=== PATIENT | male | born 1950 | race Caucasian/White ===

== ENCOUNTER → 2016-10-13 | Outpatient (CLI) | payer OTHER | LOC: FIMAGING 17:34 | PROVIDERS: ATTEND Nurse Practitioner Adult Health | DX: M50.30 Other cervical disc degeneration, unspecified cervical region (principal); M47.892 Other spondylosis, cervical region; M51.84 Other intervertebral disc disorders, thoracic region ==

== ENCOUNTER → 2016-10-29 | Outpatient (CLI) | payer OTHER | LOC: BMCIMAGING 09:02 | PROVIDERS: ATTEND Orthopaedic Surgery | DX: M25.861 Other specified joint disorders, right knee (principal) ==

== ENCOUNTER → 2018-01-21 | Outpatient (CLI) | payer OTHER ==
[~2018-01-21] MED LIST: IOPAMIDOL (ISOVUE-300) 100 ML BTL ONE
== END ==
LOC: FIMAGING 08:38
PROVIDERS: ATTEND Internal Medicine Gastroenterology
DX: K38.9 Disease of appendix, unspecified (principal); N20.2 Calculus of kidney with calculus of ureter
CPT/HCPCS: 82565-PO; Q9967

== ENCOUNTER 2018-04-19 14:47 | Day surgery (SDC) | payer OTHER ==
[2018-04-19] MEDS ORDERED: LR 1,000 ML IV ONE (15:01)
[2018-04-19] MEDS ORDERED: MIDAZOLAM 2 MG/2 ML VIAL IVP ONE (16:06)
--- NOTE | 2018-04-19 16:07 | PDANEPAE ---
ANE Past Medical History - Cardiovascular History Hx Hypertension: Yes Hx Arrhythmias: Yes Hx Chest Pain: No Hx Coronary Artery / Peripheral Vascular Disease: No Hx CHF / Valvular Disease: No Hx Palpitations: No Cardiovascular History Comment: pcp monitors bp medications. heart murmur. hx of psvt- no monitoring currently - Pulmonary History Hx COPD: No Hx Asthma/Reactive Airway Disease: No Hx Recent Upper Respiratory Infection: No Hx Oxygen in Use at Home: No Hx Sleep Apnea: No Sleep Apnea Screening Result - Last Documented: Positive Pulmonary History Comment: willian triggers - Neurologic History Hx Cerebrovascular Accident: No Hx Seizures: No Hx Dementia: No - Endocrine History Hx Diabetes: No Obesity: no - Renal History Hx Renal Disorders: Yes Renal History Comment: kidney stones. stent placed with fronczak 04/08/18 - Liver History Hx Hepatic Disorders: No - Neurological & Psychiatric Hx Hx Neurological and Psychiatric Disorders: No - Cancer History Hx Cancer: No - Congenital Disorder History Hx Congenital Disorders: No - GI History GERD: no Hx Gastrointestinal Disorders: Yes Gastrointestinal History Comment: recent colonoscopy - Other Health History Other Health History: wears glasses for driving - Chronic Pain History Chronic Pain: No - Surgical History Prior Surgeries: stent placed 04/08/18 at [facility]. appy at [facility]. colonoscopy. cartiledge scraping of left knee 20 yrs ago ANE Review of Systems Review of Systems: - Exercise capacity METS (RN): 4 METS ANE Patient History - Allergies Allergies/Adverse Reactions: No Known Allergies Allergy (Verified 04/16/18 16:19) - Home Medications Home medications: home medication list seen and reviewed Home Medications: Herbals/Supplements -Info Only 04/16/18 [Last Taken 04/16/18] Hydrochlorothiazide 04/16/18 [Last Taken 1 Day Ago ~04/18/18] Metoprolol Tartrate 04/16/18 [Last Taken 04/19/18 06:00] Oxybutynin 04/16/18 [Last Taken 04/16/18] Tamsulosin HCl 04/16/18 [Last Taken 1 Day Ago ~04/18/18] Tylenol 04/16/18 [Last Taken 3 Days Ago ~04/16/18] - NPO status NPO Status: no food or drink >8 hours NPO Since - Liquids (Date): 04/19/18 NPO Since - Liquids (Time): 12:45 NPO Since - Solids (Date): 04/19/18 NPO Since - Solids (Time): 05:00 - Anes Hx Anes Hx: no prior problems - Smoking Hx Smoking Status: Former smoker - Family Anes Hx Family Hx Anesthesia Complications: none ANE Labs/Vital Signs - Labs Result Diagrams: 04/19/18 Unknown - Vital Signs Blood Pressure: 167/87 Heart Rate: 70 Respiratory Rate: 16 O2 Sat (%): 97 Height: 165.1 cm Weight: 69.853 kg ANE Physical Exam - Airway Neck exam: FROM Mallampati Score: Class 1 Mouth exam: normal dental/mouth exam - Pulmonary Pulmonary: no respiratory distress, no rales or rhonchi, clear to auscultation - Cardiovascular Cardiovascular: regular rate and rhythym, no murmur, rub, or gallop - ASA Status ASA Status: II ANE Anesthesia Plan Anesthesia Plan: GA w LMA
[2018-04-19] MEDS ORDERED: IOPAMIDOL (ISOVUE-M 300) 15 ML VIAL ONE (16:11)
[2018-04-19] MEDS ORDERED: ceFAZolin 2 GM in D5W 100 ML IV ONE (17:08)
--- NOTE | 2018-04-19 17:08 | PDHPUP ---
History & Physical Update H&P update statement: This history and physical update is based on an assessment of the patient which was completed after admission or registration (within 24 hours), but prior to the surgery/procedure. H&P update: H&P reviewed & patient examined, no change in patient's condition since H&P completed
[2018-04-19] MEDS ORDERED: CEFAZOLIN 2 GM/DEXTROSE/100 ML BAG IV ONE (17:09)
[2018-04-19] MEDS ORDERED: PROPOFOL 200 MG/20 ML VIAL ONE (17:20)
[2018-04-19] MEDS ORDERED: fentaNYL 100 MCG/2 ML INJ ONE ×2 (17:20→18:11)
[2018-04-19] MEDS ORDERED: ONDANSETRON 4 MG/2 ML VIAL ONE (17:30)
[2018-04-19] MEDS ORDERED: DEXAMETHASONE 4 MG/ML VIAL ONE ×2 (17:30)
[2018-04-19] MEDS ORDERED: ceFAZolin 2 GM/DEXTROSE 100 ML IV ONE (17:30)
[2018-04-19] MEDS ORDERED: ONDANSETRON 4 MG/2 ML VIAL IVP PRN (17:45)
[2018-04-19] MEDS ORDERED: ACETAMINOPHEN 500 MG TAB PO PRN (17:45)
[2018-04-19] MEDS ORDERED: oxyCODONE IR 5 MG TAB PO PRN (17:45)
[2018-04-19] MEDS ORDERED: HYDROCODONE/APAP 5/325 TAB PO PRN (17:45)
[2018-04-19] MEDS ORDERED: NALOXONE HCL 0.4 MG/ML INJ IVP PRN (17:45)
[2018-04-19] MEDS ORDERED: PROMETHAZINE HCL 25 MG/ML INJ IVP PRN (17:45)
[2018-04-19] MEDS ORDERED: fentaNYL 100 MCG/2 ML INJ IVP PRN (17:45)
[2018-04-19] MEDS ORDERED: LR 500 ML IV PRN (17:45)
[2018-04-19] MEDS: LIDOCAINE 2% JELLY 20 ML (UROJECT) ONE ×3 (17:59→19:05)
[2018-04-19] MEDS ORDERED: KETOROLAC 30 MG/1 ML SDV ONE (18:56)
--- NOTE | 2018-04-19 19:22 | POSTOPPROG ---
Post Op Note Date of Operation: 04/19/18 Surgeon: Marily Joyner Anesthesiologist: [place] Anesthesia: LMA Pre-op Diagnosis: right renal stones, ureteral stricture Post-op Diagnosis: same Indication: right renal stones, ureteral stricture Procedure: cysto,RURS,laser,stent,basket ext frag, RGP, fluoro Findings: right stones lasered, dusted, extracted Inf/Abcess present in the surg proc area at time of surgery?: No EBL: Minimal Complications: none, patient tolerated procedure well Drains: Other (ch) Specimen(s): stone frag
[2018-04-19] MEDS ORDERED: OPIUM/BELLADONNA ALKALO SUPP PR ONE (19:30)
[2018-04-19] MEDS ORDERED: oxyCODONE IR 5 MG TAB ONE (19:47)
[2018-04-19 20:25] VITALS: BP 127/73
--- NOTE | 2018-04-20 13:56 | GOP ---
DATE OF OPERATION: 04/19/2018 SURGEON: Marily Joyner MD ANESTHESIA: General anesthesia. ANESTHESIOLOGIST: Dr. Saxena. PREOPERATIVE DIAGNOSIS: Right renal stones and right ureteral stricture. POSTOPERATIVE DIAGNOSIS: Right renal stones and right ureteral stricture. PROCEDURE PERFORMED: Cystoscopy, right ureteroscopy, laser lithotripsy, stent basket extraction of s tones, retrograde pyelogram. FINDINGS: SPECIMENS: Stone fragments. ESTIMATED BLOOD LOSS: Minimal. INDICATIONS: The patient presented a week and a half ago for treatment of his right renal stones, bu t due to a very tight ureteral stricture and inability to gain access to the stones, a stent was just placed, and he returns today for treatment of the stones. The rationale, risks, and benefits, inclu ding bleeding, infection, pain, injury to the urethra, bladder or ureter, inability to gain access to the stones, need for subsequent procedures, possible need for a percutaneous nephrostomy tube placed by Interventional Radiology, and need for a short-term Gordillo catheter, were all discussed with the p atient, and he agreed to proceed. DESCRIPTION OF PROCEDURE: The patient was taken back to the cystoscopy suite and placed on the cysto scopy table in the supine position. General anesthesia induced without complication. Time-out perfo rmed and core measures satisfied, including placement of a Tony Hugger, SCDs, and administration of 2 g Ancef antibiotics. He was brought to the cysto table and placed in the dorsal lithotomy position. All pressure points padded. Genitalia draped and prepped in a standard surgical fashion with Betad ine. A rigid cystoscope easily cannulated the urethral meatus. However, his kind of urethral meatus was very tight and narrow and did accommodate the scope, but I did reduce the Rabun dilation of the meatus. However, it did accommodate the scope without trauma and advanced atraumatically into th e bladder. The right ureteral stent was grasped with a grasper, the distal end externalized, and a 0 .035 Glidewire advanced with fluoroscopic guidance in the right collecting system. The stent was rem rena, leaving the wire in place. A second wire was placed with fluoroscopic and cystoscopic guidance . Then, 1 wire was secured to the drape as a safety wire and the second wire was a looking wire. I advanced a 12/14-Syrian ureteral access sheath without difficulty or resistance with fluoroscopic nelly lawson up into the right collecting system. Thus, I was able to get past the previous ureteral strict ure. Then, I advanced a flexible ureteroscope into the kidney. I did locate all of the stones, and they were in the upper, the mid, and the lower pole. These were very hard stones, but I was able to laser them into dust and basket the fragments. I did basket out several fragments and sent these to Pathology. The remaining was just dust and would pass on its own. At the end of the procedure, I fe lt everything that was remaining would pass without difficulty. He was, I do want to note, very tigh t at the ureteropelvic junction. This area likely was another stricture, but I was able to pass the sheath past it and complete the case. At the end of the procedure, I had my safety wire still up. I removed the scope and the access sheath together and examined the wall of the ureter and the ureter, except for the ureteropelvic junction area, which was edematous. It looked healthy. The safety wir e was still up. I back-loaded it in the cystoscope and then placed a 6-Syrian multivariable stent wi th fluoroscopic guidance without difficulty, with curls in the renal pelvis and also nice curl in the bladder. I looked in the bladder and removed any small clot and any stone fragments that made their way down and then placed lidocaine jelly and an 18-Syrian Gordillo catheter without difficulty, with re turn of reddish urine. At this point, I considered the procedure complete. He was awoken from anest hesia and transferred to the PACU in good condition. COMPLICATIONS: None. The patient tolerated the procedure well. TUBES: Gordillo catheter. /[id number]/MODL
== END 2018-04-19 20:26 | disposition home or self-care (01) ==
LOC: FSGY 14:47
PROVIDERS: ATTEND Urology
PROC: 0T768DZ Dilation of Right Ureter with Intraluminal Device, Via Natural or Artificial Opening Endoscopic (ICD-10-PCS; principal; 2018-04-19 16:15)
PROC: 0TF38ZZ Fragmentation in Right Kidney Pelvis, Via Natural or Artificial Opening Endoscopic (ICD-10-PCS; principal; 2018-04-19 16:15)
PROC: 0TC38ZZ Extirpation of Matter from Right Kidney Pelvis, Via Natural or Artificial Opening Endoscopic (ICD-10-PCS; principal; 2018-04-19 16:15)
PROC: BT1DYZZ Fluoroscopy of Right Kidney, Ureter and Bladder using Other Contrast (ICD-10-PCS; principal; 2018-04-19 16:15)
DX: N20.0 Calculus of kidney (principal); N13.5 Crossing vessel and stricture of ureter without hydronephrosis; I10 Essential (primary) hypertension; Z87.891 Personal history of nicotine dependence
CPT/HCPCS: 52356; 76001; C1758; C1769; C1894; 82365-90; C2625; J0690; J1100; J1885; J2250; J2405; J2704; J3010; Q9967

== ENCOUNTER → 2018-06-10 | Outpatient (CLI) | payer OTHER | LOC: BMCIMAGING 13:31 | PROVIDERS: ATTEND Urology | DX: N28.1 Cyst of kidney, acquired (principal); R93.89 Abnormal findings on diagnostic imaging of other specified body structures; R39.198 Other difficulties with micturition; Z98.890 Other specified postprocedural states ==

== ENCOUNTER → 2018-10-27 | Outpatient (CLI) | payer OTHER | LOC: BMCIMAGING 12:16 ==